=== PATIENT | female | born 1970 | race Hispanic/Latino ===

== ENCOUNTER 2017-02-01 09:08 | Emergency (ER) | payer BC, OTHER ==
[2017-02-01 09:28] VITALS: RESP 16; TEMP 98.2
--- NOTE | 2017-02-01 10:42 | C.PDOC ---
History Of Present Illness Pt c/o left posterior neck pain radiating down LLE. Denies injury. Time Seen by Provider: 02/01/17 09:30 History Per: Patient Onset/Duration Of Symptoms: Days (4) Current Symptoms Are (Timing): Still Present Quality Of Discomfort: Sharp, "Pain" Severity: Moderate Associated Symptoms: None Exacerbating Factor(s): Turning, Movement Additional History Per: Prior Records Past Medical History Reviewed: Historical Data, Nursing Documentation, Vital Signs Vital Signs: Last Vital Signs Temp 98.2 F 02/01/17 09:16 Pulse 118 H 02/01/17 09:16 Resp 16 02/01/17 09:16 BP 136/92 H 02/01/17 09:16 Pulse Ox 99 02/01/17 09:16 - Medical History PMH: Anxiety, HTN - [facility] Procedures APPLIC OF EXTERNAL FIXATOR DEVICE, TIBIA AND FIBULA (03/20/14) CL FX REDUC-TIBIA/FIBULA (03/20/14) Family History: States: Unknown Family Hx - Social History Hx Tobacco Use: Yes Hx Alcohol Use: Yes Hx Substance Use: No - Immunization History Hx Tetanus Toxoid Vaccination: No Hx Influenza Vaccination: No Hx Pneumococcal Vaccination: No Review Of Systems Except As Marked, All Systems Reviewed And Found Negative. Constitutional: Negative for: Fever, Weakness ENT: Negative for: Throat Pain, Throat Swelling Cardiovascular: Negative for: Chest Pain Respiratory: Negative for: Shortness of Breath, Hemoptysis Gastrointestinal: Negative for: Vomiting, Abdominal Pain Genitourinary: Negative for: Dysuria, Incontinence Musculoskeletal: Positive for: Neck Pain Skin: Negative for: Rash Neurological: Negative for: Weakness, Numbness, Seizures, Altered Mental Status , Headache, Dizziness Physical Exam - Physical Exam Appears: Non-toxic, No Acute Distress Skin: Normal Color, Warm, Dry, No Rash Head: Atraumatic, Normacephalic Eye(s): bilateral: Normal Inspection, PERRL, EOMI Oral Mucosa: No Trismus Neck: No Midline Cervical Tenderness, Paracervical Tenderness (left), No Step Off Deformity, Supple, Other (Full, but painful ROM) Chest: Symmetrical, No Deformity Cardiovascular: Rhythm Regular Respiratory: Normal Breath Sounds, No Accessory Muscle Use Gastrointestinal/Abdominal: Soft, No Tenderness Extremity: Normal ROM Neurological/Psych: Oriented x3, Normal Speech, Normal Cognition, Normal Cranial Nerves, Normal Motor, Normal Sensation ED Course And Treatment O2 Sat by Pulse Oximetry: 99 Pulse Ox Interpretation: Normal Progress Note: Pt was placed in soft cervical collar. Reassessment Condition: Improved Disposition Counseled Patient/Family Regarding: Diagnosis, Need For Followup, Rx Given, Smoking Cessation - Disposition Referrals: Navarro Alvarez III, MD [Staff Provider] - Disposition: HOME/ ROUTINE Disposition Time: 10:43 Condition: IMPROVED Additional Instructions: Follow up with your doctor within 1 week for further evaluation and treatment, including possible MRI of the neck. Return to the ER if you develop weakness, numbness, redness, swelling, worsening of symptoms or if you have any other concerns. Prescriptions: traMADol/Acetaminophen [Ultracet 325 MG-37.5 MG] 1 tab PO Q4 PRN #30 tab PRN Reason: Pain Instructions: Cervical Radiculopathy (ED), Soft Cervical Collar (ED) - Clinical Impression Clinical Impression: Left cervical radiculopathy
[2017-02-01 10:52] VITALS: BP 139/84; PULSE 95; O2SAT 98
== END 2017-02-01 10:51 | disposition home or self-care (01) ==
LOC: C.ER 09:08
DX: M54.12 Radiculopathy, cervical region (principal)
CPT/HCPCS: 96372; 99285; J1885